=== PATIENT | male | born 2000 | race Caucasian/White ===

== ENCOUNTER 2020-01-12 22:34 | Emergency (ER) | payer BC, MEDICAID, OTHER ==
[2020-01-12] MEDS ORDERED: Ketorolac INJ* 30 MG/ML 1 ML VIAL IM ONE (23:20)
[2020-01-12] MEDS ORDERED: Clindamycin CAP* 150 MG PO ONE (23:20)
[2020-01-12] MEDS ORDERED: oxyCODONE/Acetamin 5/325 MG* TAB PO ONE (23:21)
--- NOTE | 2020-01-12 23:24 | ED ---
Throat Pain/Nasal Congestion - HPI Summary HPI Summary: 19-year-old male presents with dental pain for the past 3 days. He states he noticed some increasing swelling today. Swelling has gotten worse. He tried calling a dentist today but the did not get an answer today. States the pain has increased. Denies any fevers. No chills. No chest pain or shortness of breath. No sore throat. No difficulty swallowing. Hasn't been taking ibuprofen for the pain. Has also been using Orajel. - History of Current Complaint Chief Complaint: EDDentalPain Time Seen by Provider: 01/12/20 22:58 - Allergies/Home Medications Allergies/Adverse Reactions: Allergies Allergy/AdvReac Type Severity Reaction Status Date / Time No Known Allergies Allergy Verified 12/29/14 10:36 Home Medications: Home Medications Methylphenidate HCl [Concerta] 36 mg PO DAILY 12/17/12 [History Confirmed ] risperiDONE [Risperdal M-Tab] 0.5 mg PO TID 12/17/12 [History Confirmed 12/17/12 ] Clindamycin Cap(NF) [Clindamycin Cap 300 mg Cap(NF)] 300 mg PO TID #21 cap 01/11 [Rx] Naproxen [Naproxen 500 mg tab] 500 mg PO BID #10 tablet. 01/12/20 [Rx] PMH/Surg Hx/FS Hx/Imm Hx Endocrine/Hematology History: Denies: Hx Anticoagulant Therapy - Immunization History Immunizations Up to Date: Yes Infectious Disease History: No Infectious Disease History: Denies: Traveled Outside the [place] in Last 30 Days - Family History Known Family History: Negative: Non-Contributory - Social History Alcohol Use: None Substance Use Type: Reports: None Smoking Status (MU): Never Smoked Tobacco Review of Systems Negative: Fever Positive: Dental Pain Negative: Chest Pain Negative: Shortness Of Breath All Other Systems Reviewed And Are Negative: Yes Physical Exam Triage Information Reviewed: Yes Vital Signs On Initial Exam: Initial Vitals Temp Pulse Resp BP Pulse Ox 100.2 F 106 18 178/101 98 01/12/20 22:38 01/12/20 22:38 01/12/20 22:38 01/12/20 22:38 01/12/20 22:38 Vital Signs Reviewed: Yes Appearance: Positive: Well-Appearing Skin: Positive: Warm, Dry Head/Face: Positive: Normal Head/Face Inspection Eyes: Positive: Normal, EOMI, MARIE, Conjunctiva Clear ENT: Positive: Pharynx normal, TMs normal Dental: Positive: Other - abscess right lower jaw Neck: Positive: Supple, Nontender, No Lymphadenopathy Respiratory/Lung Sounds: Positive: Clear to Auscultation, Breath Sounds Present Cardiovascular: Positive: Normal, RRR Musculoskeletal: Positive: Normal Neurological: Positive: Normal Psychiatric: Positive: Normal Procedures - Sedation Patient Received Moderate/Deep Sedation with Procedure: No Diagnostics - Vital Signs Vital Signs Temp Pulse Resp BP Pulse Ox 01/12/20 22:38 100.2 F 106 18 178/101 98 - Laboratory Lab Statement: Any lab studies that have been ordered have been reviewed, and results considered in the medical decision making process. EENT Course/Dx - Course Course Of Treatment: 19-year-old male presents with dental pain for the past 3 days. He states he noticed some increasing swelling today. Swelling has gotten worse. He tried calling a dentist today but the did not get an answer today. States the pain has increased. Denies any fevers. No chills. No chest pain or shortness of breath. No sore throat. No difficulty swallowing. Hasn't been taking ibuprofen for the pain. Has also been using Orajel. On exam has tenderness to right jaw. offered to drain abscess and the patient declined. Patient's states will follow up with dentist tomorrow to get drained. Will start on a course of clindamycin. Patient understands and agrees with the plan. - Differential Diagnoses Differential Diagnoses: Dental Abscess, Dental Caries, Fractured Tooth - Diagnoses Provider Diagnoses: Dental abscess Discharge ED - Sign-Out/Discharge Documenting (check all that apply): Patient Departure - Discharge Plan Condition: Good Disposition: HOME Prescriptions: Clindamycin Cap(NF) [Clindamycin Cap 300 mg Cap(NF)] 300 mg PO TID #21 cap Naproxen [Naproxen 500 mg tab] 500 mg PO BID #10 tablet. Patient Education Materials: Dental Abscess (ED) Referrals: Rob CAUSEY,Joselo Ayoub [Primary Care Provider] - Additional Instructions: Take clindamycin three times a day for 7 days take naproxen every 12 hours, use tyenlol every 6 hours for pain Avoid hard, crunchy food until seen by dentist Return to ED if develop fever, shortness of breath, pain with eye movement or swelling around eye - Billing Disposition and Condition Condition: GOOD Disposition: Home - Attestation Statements Provider Attestation: I was available for consult. This patient was seen by the MARCO A. The patient was not presented to, seen by, or examined by me. Aaron Holliday MD
[2020-01-12 23:43] VITALS: BP 135/89
== END 2020-01-12 23:42 | disposition home or self-care (01) ==
LOC: ED 22:34
DX: K04.7 Periapical abscess without sinus (principal); K08.89 Other specified disorders of teeth and supporting structures; Z79.899 Other long term (current) drug therapy
CPT/HCPCS: 96372; 99282; A9270-GY; J1885